=== PATIENT | male | born 1985 | race Caucasian/White ===

== ENCOUNTER 2021-07-30 20:58 | Emergency (ER) | payer BC ==
[2021-07-30 22:10] LABS: HEMOGLOBIN 17.5 gm/dl (14.0-17.5); RED BLOOD COUNT 5.82 M/UL (4.20-5.50); WHITE BLOOD COUNT 20.1 K/UL (4.5-11.0)
[2021-07-30 22:39] LABS: BUN/CREATININE RATIO 14 (0-10)
[2021-07-31] MEDS ORDERED: ZOFRAN ODT 4 MG4 MG GT (04:20)
== END 2021-07-31 05:52 | disposition home or self-care (01) ==
LOC: ER1 20:58
PROVIDERS: Physician Assistant
DX: R10.84 Generalized abdominal pain (principal); R11.2 Nausea with vomiting, unspecified; K21.9 Gastro-esophageal reflux disease without esophagitis; Z20.822 Contact with and (suspected) exposure to COVID-19; R10.817 Generalized abdominal tenderness
CPT/HCPCS: 0240U; 80053; 81001; 82550; 82553; 83605; 83690; 84484; 85025; 87086; 93005; 96374; 99284; J2405; J7120; Q9967